=== PATIENT | female | born 2000 | race Hispanic/Latino ===

== ENCOUNTER 2024-12-31 19:25 | Emergency (ER) | payer BC ==
[2024-12-31 19:53] LABS: #Basophils 0.03 10x3/uL (0.0-0.2); #Eosinophils Less than 0.03 10x3/uL (0.0-0.7); #Monocytes 0.55 10x3/uL (0.11-0.59); #Neutrophils 5.39 10x3/uL (1.40-6.50); %Basophils 0.4 % (0.0-1.0); %Eosinophils 0.3 % (0.0-10.0); %Lymphocytes 19.4 % (21.0-51.0); %Monocytes 7.4 % (0.0-10.0); %Neutrophils 72.1 % (42.0-75.0); Hematocrit 41.6 % (36.0-47.0); Hemoglobin 13.5 g/dL (12.0-16.0); Mean Corpuscular Hemoglobin 26.3 pg (27.0-31.0); Mean Corpuscular Volume 81.1 fL (78.0-98.0); Platelet Count 286 10x3/uL (130-400); Red Blood Cell (RBC) Count 5.13 mill/uL (4.20-5.40); White Blood Cell (WBC) Count 7.47 10x3/uL (4.8-10.8)
[2024-12-31] MEDS ORDERED: Ondansetron PF 4 MG/2 ML Vial ONE (20:04)
[2024-12-31 20:13] LABS: ALT (SGPT) 7 U/L (Less than 34); AST (SGOT) 21 U/L (11-34); Albumin 4.6 g/dL (3.1-4.5); Alkaline Phosphatase 96 U/L (40-110); Anion Gap 16 mmol/L (10-20); BUN (Urea Nitrogen) 7 mg/dL (7.0-18.7); Bilirubin, Total 0.5 mg/dL (0.3-1.2); Calc. Creatinine Clearance 0 mL/min (70-130); Calcium 9.6 mg/dL (7.8-10.44); Carbon Dioxide 22 mmol/L (22-29); Chloride 107 mmol/L (98-107); Globulin 3.5 g/dL (2.4-3.5); Glucose 100 mg/dL (70-105); Potassium 3.8 mmol/L (3.5-5.1); Sodium 141 mmol/L (136-145)
== END 2024-12-31 21:00 | disposition home or self-care (01) ==
LOC: ERS 19:25
DX: U07.1 COVID-19 (principal)
CPT/HCPCS: 36415; 71045; 80053; 83605; 85025; 96361; 96374; J2405